=== PATIENT | male | born 1985 | race Hispanic/Latino ===

== ENCOUNTER 2019-08-10 20:54 | Inpatient (IN) | payer OTHER ==
[2019-08-10 21:39] LABS: Hemoglobin 13.8 g/dL (14.0-18.0); Mean Corpuscular HGB CONC 34.1 g/dL (32.0-36.0); Mean Corpuscular Hemoglobin 30.7 pg (27.0-31.0); Mean Platelet Volume 7.4 fL (7.4-10.4); Platelet Count 268 thou/uL (130-400); RBC Distribution Width 11.6 % (11.5-14.5); Red Blood Cell (RBC) Count 4.49 mill/uL (4.70-6.10); White Blood Cell (WBC) Count 19.7 thou/uL (4.8-10.8)
[2019-08-10] MEDS ORDERED: Ondansetron PF 4 MG/2 ML Vial ONE (21:40)
[2019-08-10] MEDS ORDERED: Ketorolac Tromethamine 30 MG/ML VIAL ONE (21:40)
[2019-08-10] MEDS ORDERED: Fentanyl 100 MCG/2 ML VIAL ONE (21:40)
[2019-08-10 21:58] LABS: Band 3 % (5-11); Lymphocytes 4 % (21-51); MDiff Complete? YES; Monocytes 5 % (0-10); Neutrophil 88 % (42-75); Platelet Morphology Comment Appears Adequate; RBC Morphology Normal
[2019-08-10 22:06] LABS: ALT (SGPT) 22 U/L (8-55); AST (SGOT) 23 U/L (5-34); Albumin 4.4 g/dL (3.5-5.0); Alkaline Phosphatase 67 U/L (40-110); Anion Gap 13 mmol/L (10-20); BUN (Urea Nitrogen) 9 mg/dL (8.9-20.6); Bilirubin, Total 1.5 mg/dL (0.2-1.2); Calc. Creatinine Clearance 0 mL/min (70-130); Calcium 9.5 mg/dL (7.8-10.44); Carbon Dioxide 27 mmol/L (22-29); Chloride 100 mmol/L (98-107); Estimated GFR-MDRD Greater than 90; Globulin 3.7 g/dL (2.4-3.5); Glucose 136 mg/dL (70-105); Lipase 20 U/L (8-78); Potassium 3.7 mmol/L (3.5-5.1); Protein, Total 8.1 g/dL (6.0-8.3); Sodium 136 mmol/L (136-145)
[2019-08-10 22:08] LABS: Bacteria/HPF None Seen HPF (None Seen); Bilirubin Negative (Negative); Blood, Urine Negative (Negative); Clarity Clear (Clear); Glucose, Urine (Dipstick) Normal (Negative); Leukocyte Negative Leu/uL (Negative); Mucous/LPF 2+ LPF (<2+); Nitrite Negative (Negative); Protein, Urine (Dipstick) 30 mg/dL (Neg-Trace); RBC/HPF 0-3 HPF (0-3); Squamous Epithelial None Seen HPF (0-3); WBC/HPF 0-3 HPF (0-3)
--- NOTE | 2019-08-10 22:14 | CT ---
CT ABDOMEN AND PELVIS PERFORMED WITHOUT CONTRAST ENHANCEMENT: History: Lower abdominal pain. FINDINGS: The lung bases are clear. Liver, spleen, and pancreas regions appear unremarkable. Subtle increased attenuation within the gall bladder suggests small stones. The right and left adrenal glands and right and left kidneys are normal in size. No renal calculi or obstruction. No significant periaortic or mesenteric adenopathy. Scattered colonic diverticula are no steph. CT PELVIS PERFORMED WITHOUT CONTRAST ENHANCEMENT: There are inflammatory changes in the sigmoid colon, scattered diverticulosis. Most compatible with d iverticulitis. No abscess. No free fluid demonstrated. The appendix is normal. IMPRESSION: 1. Inflammatory changes of the sigmoid colon most compatible with diverticulitis. 2. Possible small gallstones. POS: ABDIRIZAK
[2019-08-10] MEDS ORDERED: metroNIDAZOLE 500 MG/100 ML BAG ONE (22:27)
[2019-08-10] MEDS ORDERED: Acetaminophen 650 MG Suppository PR PRN (22:52)
[2019-08-10] MEDS ORDERED: Acetaminophen 325 MG TAB PO PRN (22:52)
[2019-08-10] MEDS ORDERED: HYDROcodone/Acetaminophen 5/325 mg Tablet PO PRN (23:03)
[2019-08-10] MEDS ORDERED: Sodium Chloride 0.45% 1,000 ML IV SCH (23:15)
[2019-08-10 23:31] LABS: Lactic Acid 1.1 mmol/L (0.5-2.2)
--- NOTE | 2019-08-10 23:44 | HP ---
TIME OF ASSESSMENT: 2200 hours. PRIMARY CARE PHYSICIAN: None. CHIEF COMPLAINT: Lower abdominal pain. HISTORY OF PRESENT ILLNESS: Mr. Valencia is a 34-year-old gentleman who presents with complaints of lower abdominal discomfort for the last day and a half according to the patient. States that it started in the suprapubic region and then started to radiate to both the right and left lower quadrant. States it has been an aching pain, which seems to be controlled if he does not move. Exacerbated by standing or moving. He has been taking ibuprofen for the pain at home. Denies having any fevers or chills or sweats. Reports having decreased stool output, but denies any loose stools or hard stools. Denies any associated nausea or vomiting. Denies any urinary symptoms including dysuria or hematuria. Has not had any pain like this in the past. Due to the fact that it has persisted and has limited his activity level, he opted to come in for further evaluation. ED COURSE: In the emergency department, the patient underwent laboratory studies, which was notable for leukocytosis with a white count of 19.7, neutrophils 88. Hemoglobin 13.8, platelets 268. LFTs notable for a bilirubin of 1.5. Otherwise unremarkable and lipase was normal. He had a urinalysis done, which showed 30 of protein, trace ketones, 4 urobilinogen and 2+ mucus, otherwise negative. He had a CT imaging of the abdomen and pelvis, which demonstrated inflammatory changes of the sigmoid colon, felt to be most compatible with diverticulitis. There was subtle increased attenuation within the gallbladder suggesting small gallstones. He was started on IV antibiotics with Levaquin and Flagyl. For his pain, he was given a dose of Toradol, fentanyl, and has received 2 L of normal saline. At present, the patient is without any significant pain. ALLERGIES: NO KNOWN DRUG ALLERGIES. CURRENT MEDICATIONS: None. As of recently, taking ibuprofen p.r.n. for abdominal pain. PAST MEDICAL HISTORY: None. PAST SURGICAL HISTORY: None. SOCIAL HISTORY: The patient reports drinking 8 to 9 beers daily on the days that he is off work, which is usually three days in a row. On the days that he does work, he does not drink any alcohol and denies any withdrawal symptoms. Denies any drug use and does not smoke. PHYSICAL EXAMINATION: GENERAL: The patient appears well developed, well nourished, is in no acute distress. He is resting comfortably on the stretcher. VITAL SIGNS: Temperature 98.7, pulse 109, blood pressure 146/86, respirations 18, O2 saturation 98% on room air. HEENT: Normocephalic and atraumatic. Pupils are equal, round, and reactive to light without scleral icterus. Oropharynx is clear. NECK: Supple. LUNGS: Clear to auscultation bilaterally without wheezes, rales, or rhonchi. CARDIAC: Regular rate and rhythm. ABDOMEN: Soft. Mild discomfort with palpation of the lower abdomen. No rigidity guarding. No renal angle tenderness. EXTREMITIES: No lower extremity swelling or edema. Peripheral pulses equal and strong bilaterally. SKIN: Warm and dry. INVESTIGATIONS: As mentioned above in HPI. IMPRESSION AND PLAN: Mr. Valencia is a 34-year-old gentleman presenting with lower abdominal discomfort with CT imaging studies demonstrating changes consistent with diverticulitis. We will continue IV antibiotics and continue IV fluids. Dr. Carty has placed a consultation to Gastroenterology. The patient with elevated white count of 19. We will add a lactic acid. Of note, bilirubin is slightly elevated at 1.5. We will continue to monitor LFTs. The patient is comfortable at present without any pain. Code status is full. Surrogate decision maker is Peg Kimble. Case was discussed with Dr. Conley, who agrees with the plan of care as described above. Job ID: [id number]
[2019-08-11 00:07] VITALS: BMI 27.3
[2019-08-11] MEDS: Sodium Chloride 0.9% 1,000 ML IV SCH ×2 (01:03→09:26)
[2019-08-11] MEDS: HYDROcodone/Acetaminophen 5/325 mg Tablet PO PRN ×2 (04:07→21:26)
[2019-08-11] MEDS: metroNIDAZOLE 500 MG in Premix Bag 1 BAG IVPB SCH ×3 (05:20→21:12)
[2019-08-11 06:02] LABS: Band 8 % (5-11); Hemoglobin 12.6 g/dL (14.0-18.0); Hypochromia SLIGHT = 6-15 cells (100X) (0-5/hpf); Lymphocytes 1 % (21-51); MDiff Complete? YES; Mean Corpuscular HGB CONC 33.8 g/dL (32.0-36.0); Mean Corpuscular Hemoglobin 30.2 pg (27.0-31.0); Mean Corpuscular Volume 89.5 fL (78.0-98.0); Mean Platelet Volume 7.6 fL (7.4-10.4); Monocytes 6 % (0-10); Neutrophil 85 % (42-75); Platelet Count 252 thou/uL (130-400); Platelet Morphology Comment Appears Adequate; RBC Distribution Width 11.7 % (11.5-14.5); Red Blood Cell (RBC) Count 4.18 mill/uL (4.70-6.10); White Blood Cell (WBC) Count 20.9 thou/uL (4.8-10.8)
[2019-08-11 06:05] LABS: ALT (SGPT) 18 U/L (8-55); AST (SGOT) 21 U/L (5-34); Albumin 3.9 g/dL (3.5-5.0); Alkaline Phosphatase 68 U/L (40-110); Anion Gap 15 mmol/L (10-20); BUN (Urea Nitrogen) 6 mg/dL (8.9-20.6); Bilirubin, Total 1.5 mg/dL (0.2-1.2); Calc. Creatinine Clearance 167 mL/min (70-130); Calcium 8.8 mg/dL (7.8-10.44); Carbon Dioxide 18 mmol/L (22-29); Chloride 105 mmol/L (98-107); Estimated GFR-MDRD Greater than 90; Globulin 3.4 g/dL (2.4-3.5); Glucose 120 mg/dL (70-105); Potassium 3.5 mmol/L (3.5-5.1); Protein, Total 7.3 g/dL (6.0-8.3); Sodium 134 mmol/L (136-145)
--- NOTE | 2019-08-11 10:19 | CON ---
DATE OF CONSULTATION: 08/11/2019 REASON FOR CONSULTATION: Diverticulitis. HISTORY OF PRESENT ILLNESS: Rush Valencia is a very pleasant 34-year-old man with no significant past medical history, takes no medications on a daily basis. He was admitted to the hospital yesterday with abdominal pain and leukocytosis. He reports about 1-1/2 days prior he started having subacute onset of lower abdominal pain. This is really throughout the entire lower abdomen, maybe a bit more on the left and was worse with movement. He had a couple of loose bowel movements yesterday, but there was no melena or hematochezia. There has been no associated cough or shortness of breath. No nausea or vomiting, but the pain escalated prompting his presentation. He was afebrile until last night when his temperature did get up to 99.9. Admission labs demonstrated leukocytosis with WBC currently 20.9, labs otherwise essentially unremarkable, lactic acid 1.1. He has been tachycardic, however. A CT of the abdomen and pelvis demonstrates what appears to be sigmoid diverticulitis with no evidence of abscess or free air. He was started on IV Levaquin and Flagyl, received some fentanyl and Ayr. This morning, he feels that he is doing better, though of course he got pain medication earlier. REVIEW OF SYSTEMS: Full review of systems including constitutional; head, eyes, ears, nose, and throat; GI; ; cardiovascular; respiratory; musculoskeletal; and neurologic systems is negative except as noted in the HPI. PAST MEDICAL HISTORY: None. PAST SURGICAL HISTORY: None. FAMILY HISTORY: Negative for GI illness or malignancy. SOCIAL HISTORY: No smoking or drug use. He will have 8 or 9 beers on the days that he is off work, which is about 3 days at a time. He does not drink at all when he is working. ALLERGIES: NO KNOWN DRUG ALLERGIES. MEDICATIONS: Outpatient medications: Ibuprofen sparingly as needed, just over the past couple of days. Inpatient medications: 1. Levaquin IV. 2. Flagyl IV. 3. Ayr p.r.n. 4. Toradol. PHYSICAL EXAMINATION: VITAL SIGNS: Temperature 99.9, pulse 118, blood pressure 117/70, and 96% oxygen saturation on room air. GENERAL: A 34-year-old man, sitting up in bed comfortably, in no distress. SKIN: No jaundice. No rashes were palpable. EYES: No scleral icterus. Extraocular movements intact. ENT: Mucous membranes moist. No oral lesions. LYMPH: No submandibular or supraclavicular lymphadenopathy. THYROID: Nontender to palpation. HEART: Regular rate and rhythm. LUNGS: Clear to auscultation bilaterally. ABDOMEN: Nondistended. Bowel sounds are present. The abdomen is soft. He is tender to palpation throughout the lower abdomen, but there is no guarding or rebound tenderness. EXTREMITIES: No peripheral edema. VESSELS: Radial pulses 2+ bilaterally. NEUROLOGIC: No focal deficits. LABORATORY STUDIES: WBC elevated to 20.9, hemoglobin 12.6, and platelets 252. Sodium 134, potassium 3.5, BUN 6, creatinine 0.72, and glucose 120. Lactic acid only 1.1. Lipase only 20. Total bilirubin 1.5, alkaline phosphatase 68, AST 21, ALT 18, and albumin 3.9. Urinalysis negative for nitrites and leukocyte esterase. IMAGING STUDIES: CT of the abdomen and pelvis from admission yesterday, demonstrated scattered diverticulosis with inflammatory changes in the sigmoid colon, consistent with sigmoid diverticulitis. There is no evidence of any abscess or free air. There is suggestion of gallstones. The skin is otherwise normal. ASSESSMENT AND PLAN: 1. Acute sigmoid diverticulitis. 2. Fever, low-grade this morning. I had a long discussion with the patient about his presentation. Everything does seem consistent with acute sigmoid diverticulitis. This would be his 1st attack. There is no evidence of any complication on initial CT imaging. He does have fever and leukocytosis. Agree with current management including IV Levaquin and Flagyl as well as analgesics as needed. He seems to be tolerating his oral diet okay, but I advised him that if his symptoms are worsening today, he should back off to a liquid diet. Would follow his symptoms throughout the day, recheck his WBC count, monitor his temperature. I think that if he has had resolution of fever and improvement in white count as well as significant improvement in symptoms by tomorrow, he could potentially be discharged on oral antibiotics to complete a 10-day course, and follow up as an outpatient. We will have him follow up with a telehealth appointment in 2-3 weeks, and thereafter, plan on followup colonoscopy, likely in October of this year. Thank you for the consultation. Please call anytime with questions or concerns. Job ID: [id number]
--- NOTE | 2019-08-11 12:39 | PDOC.HOSPP ---
- Subjective Encounter Date: 08/11/19 Subjective: Tolerated his breakfast. His pain is controlled. No BM yet. - Objective Vital Signs & Weight: Vital Signs (12 hours) Temp Pulse Resp BP Pulse Ox 08/11/19 11:55 98.6 F 93 18 108/65 97 08/11/19 07:28 99.9 F H 118 H 18 117/70 96 08/11/19 04:00 99.6 F 117 H 18 120/69 96 Weight Weight 180 lb I&O: 08/10/19 08/11/19 08/12/19 06:59 06:59 06:59 Intake Total 1130 Output Total 650 Balance 480 Result Diagrams: 08/11/19 05:07 08/11/19 05:07 Hospitalist ROS - Medication Medications: Active Medications Generic Name Dose Route Start Last Admin Trade Name Freq PRN Reason Stop Dose Admin Acetaminophen 650 mg 08/10/19 22:52 08/11/19 09:22 Tylenol PO 650 mg Q4H PRN Administration Headache/Fever/Mild Pain (1-3) Hydrocodone Bitart/Acetaminophen 2 tab 08/10/19 23:03 08/11/19 04:07 Raymond 5/325 PO 2 tab Q4H PRN Administration Moderate to Severe Pain (6-10) Sodium Chloride 1,000 mls @ 65 mls/hr 08/10/19 23:00 08/11/19 09:26 Normal Saline 0.9% IV 1,000 mls .[id number] MADAN Administration Metronidazole 500 mg/ Device 100 mls @ 100 mls/hr 08/11/19 06:00 08/11/19 05: 20 IVPB 100 mls Q8HR MADAN Administration - Exam General Appearance: awake alert ENT: normocephalic atraumatic Neck: supple, no JVD Heart: RRR, no murmur, no gallops, no rubs Respiratory: CTAB Gastrointestinal: soft, tender to palpation Neurological: cranial nerve grossly intact, no weakness Hosp A/P (1) Acute diverticulitis Code(s): K57.92 - DVTRCLI OF INTEST, PART UNSP, W/O PERF OR ABSCESS W/O BLEED Status: Acute (2) Sepsis Code(s): A41.9 - SEPSIS, UNSPECIFIED ORGANISM Status: Acute - Plan Clinically improving. Tolerating diet. No evidence of complications. Continue IV antibiotics. Recheck CBC in the morning.
[2019-08-12] MEDS: Sodium Chloride 0.9% 1,000 ML IV SCH ×2 (04:50→16:32)
[2019-08-12] MEDS: metroNIDAZOLE 500 MG in Premix Bag 1 BAG IVPB SCH ×3 (04:50→22:52)
[2019-08-12 05:27] LABS: Band 18 % (5-11); Hemoglobin 12.1 g/dL (14.0-18.0); Lymphocytes 4 % (21-51); MDiff Complete? YES; Mean Corpuscular HGB CONC 33.4 g/dL (32.0-36.0); Mean Corpuscular Hemoglobin 30.1 pg (27.0-31.0); Mean Corpuscular Volume 90.1 fL (78.0-98.0); Mean Platelet Volume 7.2 fL (7.4-10.4); Monocytes 5 % (0-10); Neutrophil 73 % (42-75); Platelet Count 231 thou/uL (130-400); Platelet Morphology Comment Appears Adequate; RBC Distribution Width 11.6 % (11.5-14.5); Red Blood Cell (RBC) Count 4.03 mill/uL (4.70-6.10); White Blood Cell (WBC) Count 16.5 thou/uL (4.8-10.8)
[2019-08-12 05:36] LABS: Anion Gap 13 mmol/L (10-20); BUN (Urea Nitrogen) 6 mg/dL (8.9-20.6); Calc. Creatinine Clearance 169 mL/min (70-130); Calcium 9.2 mg/dL (7.8-10.44); Carbon Dioxide 24 mmol/L (22-29); Chloride 103 mmol/L (98-107); Estimated GFR-MDRD Greater than 90; Glucose 105 mg/dL (70-105); Potassium 3.7 mmol/L (3.5-5.1); Sodium 136 mmol/L (136-145)
[2019-08-12] MEDS: HYDROcodone/Acetaminophen 5/325 mg Tablet PO PRN ×2 (12:21→18:32)
--- NOTE | 2019-08-12 16:40 | PRG ---
DATE OF SERVICE: 08/12/2019 REASON FOR CONSULTATION: Acute uncomplicated diverticulitis. SUBJECTIVE: This morning, the patient stated that he had an increase in his periumbilical/right lower quadrant abdominal pain that required the administration of narcotic medications in order to achieve relief. He still continues to have mild soreness in the lower abdominal quadrants, but states that it is much improved from when he came in on admission. He did have some mild nausea earlier today as well, but no actual vomiting. Otherwise, he denies any fevers, chills, hematemesis, melena, or hematochezia. OBJECTIVE: VITAL SIGNS: Temperature 98.4, pulse 88, blood pressure 125/72, respiratory rate 16, saturating 97% on room air. GENERAL: The patient was lying in bed, in no acute distress. Alert and oriented x4. CARDIOVASCULAR: Regular rate and rhythm. RESPIRATORY: Clear to auscultation bilaterally. ABDOMEN: Normoactive bowel sounds. Soft, nondistended. Tenderness to palpation in the left lower quadrant, periumbilical, right lower quadrant, and right mid abdomen. EXTREMITIES: No cyanosis, clubbing, or edema. LABORATORY DATA: CBC with a white blood cell count of 16.5, hemoglobin 12.1, hematocrit 36.3, platelets 231. Chemistry with a sodium of 136, potassium 3.7, chloride 103, CO2 of 24, BUN 6, creatinine 0.61, glucose 105. IMAGING DATA: No current GI imaging is available for review. ASSESSMENT AND PLAN: The patient is a 34-year-old male with no significant past medical history, presenting with acute uncomplicated sigmoid diverticulitis. Acute uncomplicated diverticulitis: The patient initially presented to the hospital with increased lower abdominal pain with CT findings on admission consistent with a diagnosis of diverticulitis. He was ultimately placed on Levaquin and metronidazole as part of antibiotic therapy for this condition and over the last 24 to 48 hours has been having improvement in his abdominal pain, although not resolution. He currently does not have any evidence of complicated disease and hopefully will respond to antibiotic therapy, although with the continued pain, he may need another day in the hospital for further evaluation, especially with an elevated white blood cell count on labs earlier today. RECOMMENDATIONS: 1. We would continue with Levaquin and metronidazole as you are doing as part of treatment for diverticulitis with a total to complete a 10-day course of antibiotics. 2. We would continue lower fiber diet for the time being. 3. Pain control per primary team. 4. We will continue to monitor the patient one more night in the hospital and if the patient's abdominal pain is controlled and the patient is having bowel movements, then he could be potentially discharged to home with oral antibiotics. We will continue to follow peripherally at this time. Please call with any questions. Job ID: [id number]
--- NOTE | 2019-08-12 16:47 | PQF ---
DATE: 08-12-19 ATTN: DR. HENRY KNOX Please exercise your independent, professional judgment in responding to the clarification form. Clinical indicators are provided on the bottom of this form for your review Diagnosis: SEPSIS Present on Admission (POA): [ > ] Yes [ ] No [ ] Unable to determine For continuity of documentation, please document condition throughout progress notes and discharge summary. Thank You. CLINICAL INDICATORS - SIGNS / SYMPTOMS / LABS/ RESULTS AND LOCATION IN MR: ER DX 08-10-19: ACUTE DIVERTICULITIS WITH LEUKOCYTOSIS H&P 08-10-19: DIVERTICULITIS PN DR. KNOX 08-11-19: ACUTE SIGMOID DIVERTICULITIS, ACUTE SEPSIS WBC: 08-10-19: 19.7, 08-11-19: 20.9 08-12-19: 16.5 BANDS: 08-10-19: 3 08-12-19: 18 TEMP: 08-11-19: 99.9 PULSE: 08-10-19: 115 08-11-19: 117, 118, 101 RISK FACTORS / RESULTS AND LOCATION IN MR: ER DX 08-10-19: ACUTE DIVERTICULITIS WITH LEUKOCYTOSIS TREATMENT / RESULTS AND LOCATION IN MR: MAR: 08-11-19: LEVAQUIN IV, FLAGYL IV , 08-10-19: IVF NS (This form is maintained as a part of the permanent medical record) 2014 [employer], [email or web address]. All Rights Reserved [email or web address]
--- NOTE | 2019-08-12 21:41 | PDOC.HOSPP ---
- Subjective Encounter Date: 08/12/19 Subjective: The patient is abdominal pain worsened with advancement of diet. - Objective Vital Signs & Weight: Vital Signs (12 hours) Temp Pulse Resp BP Pulse Ox 08/12/19 19:21 99.2 F 93 12 137/79 95 08/12/19 16:56 98.5 F 63 16 107/68 97 08/12/19 11:59 98.4 F 88 16 125/72 97 Weight Weight 180 lb I&O: 08/11/19 08/12/19 08/13/19 06:59 06:59 06:59 Intake Total 1130 720 Output Total 650 Balance 480 720 Result Diagrams: 08/12/19 05:04 08/12/19 05:03 Hospitalist ROS - Medication Medications: Active Medications Generic Name Dose Route Start Last Admin Trade Name Freq PRN Reason Stop Dose Admin Acetaminophen 650 mg 08/10/19 22:52 08/11/19 09:22 Tylenol PO 650 mg Q4H PRN Administration Headache/Fever/Mild Pain (1-3) Hydrocodone Bitart/Acetaminophen 2 tab 08/10/19 23:03 08/12/19 18:32 Laona 5/325 PO 2 tab Q4H PRN Administration Moderate to Severe Pain (6-10) Sodium Chloride 1,000 mls @ 65 mls/hr 08/10/19 23:00 08/12/19 16:32 Normal Saline 0.9% IV 1,000 mls .[id number] MADAN Administration Levofloxacin 750 mg/ Device 150 mls @ 100 mls/hr 08/11/19 22:00 08/11/19 21: 18 IVPB 150 mls Q24HR MADAN Administration Metronidazole 500 mg/ Device 100 mls @ 100 mls/hr 08/11/19 06:00 08/12/19 14: 23 IVPB 100 mls Q8HR MADAN Administration - Exam General Appearance: awake alert ENT: normocephalic atraumatic Neck: supple, no JVD Heart: RRR Respiratory: CTAB Gastrointestinal: soft, non-distended, normal bowel sounds, tender to palpation Hosp A/P (1) Acute diverticulitis Code(s): K57.92 - DVTRCLI OF INTEST, PART UNSP, W/O PERF OR ABSCESS W/O BLEED Status: Acute (2) Sepsis Code(s): A41.9 - SEPSIS, UNSPECIFIED ORGANISM Status: Acute - Plan Return to liquid diet No evidence of complications. Continue IV antibiotics. Recheck CBC in the morning.
[2019-08-13] MEDS: HYDROcodone/Acetaminophen 5/325 mg Tablet PO PRN ×3 (00:05→16:59)
[2019-08-13] MEDS: metroNIDAZOLE 500 MG in Premix Bag 1 BAG IVPB SCH ×2 (05:14→14:06)
[2019-08-13 05:50] LABS: Anion Gap 13 mmol/L (10-20); BUN (Urea Nitrogen) 6 mg/dL (8.9-20.6); Calc. Creatinine Clearance 185 mL/min (70-130); Calcium 8.8 mg/dL (7.8-10.44); Carbon Dioxide 23 mmol/L (22-29); Chloride 103 mmol/L (98-107); Estimated GFR-MDRD Greater than 90; Glucose 86 mg/dL (70-105); Potassium 3.7 mmol/L (3.5-5.1); Sodium 135 mmol/L (136-145)
[2019-08-13 06:14] LABS: Band 3 % (5-11); Hemoglobin 12.6 g/dL (14.0-18.0); Hypochromia SLIGHT = 6-15 cells (100X) (0-5/hpf); Lymphocytes 10 % (21-51); MDiff Complete? YES; Mean Corpuscular HGB CONC 33.7 g/dL (32.0-36.0); Mean Corpuscular Hemoglobin 30.3 pg (27.0-31.0); Mean Corpuscular Volume 89.9 fL (78.0-98.0); Mean Platelet Volume 7.4 fL (7.4-10.4); Monocytes 3 % (0-10); Neutrophil 84 % (42-75); Platelet Count 268 thou/uL (130-400); Platelet Morphology Comment Appears Adequate; RBC Distribution Width 11.4 % (11.5-14.5); Red Blood Cell (RBC) Count 4.17 mill/uL (4.70-6.10); White Blood Cell (WBC) Count 13.6 thou/uL (4.8-10.8)
[2019-08-13] MEDS: Sodium Chloride 0.9% 1,000 ML IV SCH (07:45)
--- NOTE | 2019-08-13 12:43 | PRG ---
DATE OF SERVICE: 08/13/2019 SUBJECTIVE: Mr. Valencia is feeling better. He is tolerating a solid diet and had small bowel movements, which are soft yesterday. His abdominal pain has improved. He is tolerating a solid diet. He has been up ambulating. OBJECTIVE: VITAL SIGNS: Temperature 98.0, blood pressure 120/77, pulse 69. GENERAL: He is in no acute distress. Alert and oriented x3. LUNGS: Clear to auscultation bilaterally. HEART: Regular rate and rhythm without murmur. ABDOMEN: Soft. Minimal tenderness in the lower abdomen without guarding. Bowel sounds are present. EXTREMITIES: No lower extremity edema. LABORATORY DATA: White blood cell count 13.6, hemoglobin 12.6, platelets 268. Creatinine 0.65. IMPRESSION: 1. Acute uncomplicated diverticulitis of the sigmoid colon. He has responded well to antibiotics and now he is afebrile and his white blood cell count has decreased. His abdominal pain has improved and he is tolerating a solid diet and passing bowel movements. 2. Mild isolated hyperbilirubinemia, likely secondary to Gilbert's. RECOMMENDATIONS: 1. Discharge home today to complete a 10-day course of fluoroquinolone and metronidazole 500 mg three times daily. He can be discharged on levofloxacin 500 mg daily or ciprofloxacin 500 mg twice daily. I would finish a 14-day course including when he has received here in the hospital. 2. Follow up in the office with Dr. Gonzalez in 4 to 6 weeks. Colonoscopy should be done at that time. 3. I will sign off. I expect the patient should go home today. Job ID: [id number]
[2019-08-13 16:22] VITALS: BP 114/71; TEMP 98.5
--- NOTE | 2019-08-14 12:21 | DIS ---
DATE OF ADMISSION: 08/10/2019 DATE OF DISCHARGE: 08/13/2019 DISCHARGE DIAGNOSES: 1. Acute diverticulitis. 2. Sepsis. DISCHARGE MEDICATIONS: 1. Levofloxacin 500 mg orally daily. 2. Metronidazole 500 mg q.8 hours for 10 days. HISTORY OF PRESENT ILLNESS AND HOSPITAL COURSE: The patient is a 34-year-old male with no significant past medical history who presented to the hospital complaining of left lower quadrant abdominal pain. In the ER, laboratory studies revealed leukocytosis and CT scan of the abdomen and pelvis revealed sigmoid diverticulitis. The patient was admitted to the hospital for management of diverticulitis with sepsis. He received IV antibiotics and IV hydration and his symptoms gradually improved over 3 days. On the day of discharge, the patient was able to tolerate soft diet. We will continue outpatient management with levofloxacin and metronidazole as noted above. Job ID: [id number]
== END 2019-08-13 17:50 | disposition home or self-care (01) | DRG 872 ==
LOC: ERS 20:54 → T4-A 22:15
PROVIDERS: ADMIT Internal Medicine; ATTEND Internal Medicine
DX: A41.9 Sepsis, unspecified organism (principal); K57.32 Diverticulitis of large intestine without perforation or abscess without bleeding
CPT/HCPCS: 36415; 74176; 80048; 80053; 81003; 81015; 83605; 83690; 85007; 85025; 85027; 96361; 96365; 96368; 96375; J1885; J1956; J2405; J3010